=== PATIENT | male | born 1980 | race Caucasian/White ===

== ENCOUNTER 2025-02-09 17:49 | Emergency (ER) | payer OTHER ==
[~2025-02-09] VITALS: Ht 180.3 cm; Wt 97.5 kg
[2025-02-09 18:16] VITALS: TEMP 98.3
[2025-02-09 18:51] LABS: PLATELET COUNT (AUTO) 297 K/uL (150-450); RED BLOOD CELL COUNT(AUTO) 5.36 MIL/uL (4.5-6.0); RED CELL DISTRIBUTION WIDTH 14.4 % (11.5-15.0); WHITE BLOOD COUNT (AUTO) 14.9 K/uL (4.3-11.0)
[2025-02-09 18:54] LABS: APPEARANCE,URINE CLEAR (CLEAR); BLOOD, URINE 1+ Ery/uL (NEGATIVE); LEUKOCYTE ESTERASE ,URINE NEGATIVE (NEGATIVE); NITRITE, URINE NEGATIVE (NEGATIVE); UGLUCOSE NEGATIVE (NEGATIVE)
[2025-02-09 18:59] LABS: CALCIUM, SERUM 9.4 mg/dL (8.5-10.1); CREATININE 1.1 mg/dL (0.6-1.3); SODIUM SERUM 138.0 mmol/L (136-145); UREA NITROGEN, BLOOD 12.0 mg/dL (7-18)
[2025-02-09 18:59] LABS: ADD URINE CULTURE NO; SQUAMOUS EPITHELIAL CELL,UR None Seen /HPF (None Seen)
[2025-02-09 19:04] LABS: ALCOHOL, BLOOD 44.0 mg/dL (0-10); AMPHETAMINE, URINE POSITIVE (NEGATIVE); ASPARTATE AMINOTRANSFERASE 19.0 U/L (15-37); BARBITURATE, URINE NEGATIVE (NEGATIVE); BENZODIAZEPINE, URINE NEGATIVE (NEGATIVE); CANNABINOID, URINE NEGATIVE (NEGATIVE); COCCAINE, URINE NEGATIVE (NEGATIVE); OPIATE, URINE NEGATIVE (NEGATIVE); TOTAL PROTEIN, SERUM 8.4 g/dL (6.4-8.2)
[2025-02-09] MEDS: IV NS 0.9% 1,000 ML BAG IV ONE (19:15)
[2025-02-10 00:31] VITALS: BP 129/79; O2SAT 98
== END 2025-02-09 22:46 | disposition home or self-care (01) ==
LOC: ER 17:54
DX: F19.94 Other psychoactive substance use, unspecified with psychoactive substance-induced mood disorder (principal); F17.200 Nicotine dependence, unspecified, uncomplicated; Z20.822 Contact with and (suspected) exposure to COVID-19; Z59.00 Homelessness unspecified
CPT/HCPCS: 99283; 96360; 85025; 80048; 80076; 81001; 36415; 87426; 80143; 80320; 80307; J7030; G0480